=== PATIENT | female | born 1930 | race Caucasian/White ===

== ENCOUNTER 2017-08-27 11:22 | Inpatient (IN) | payer OTHER, MEDICARE ==
--- NOTE | 2017-08-27 11:41 | EDPHY ---
H & P Stated Complaint: sent from dr Lopez--afib--hx of, increased sob and lower ext edema Time Seen by Provider: 08/27/17 11:39 - Personal History Current Tetanus/Diphtheria Vaccine: Unsure Current Tetanus Diphtheria and Acellular Pertussis (TDAP): Unsure Tetanus Vaccine Date: 11/2004 - Medical/Surgical History Hx Asthma: No Hx Chronic Respiratory Disease: No Hx Diabetes: No Hx Cardiac Disease: Yes Hx Renal Disease: No Hx Cirrhosis: No Hx Alcoholism: No Hx HIV/AIDS: No Hx Splenectomy or Spleen Trauma: No Other PMH: HTN, NM 6 yrs ago, 3 stents placed, stroke 1989, hysterectomy 1973, cataract surgery, scarlet fever as a child, broke her back, chronic A-fib, chronic cough; pna - Social History Smoking Status: Never smoked Constitutional: Initial Vital Signs Temperature (C) 36.5 C 08/27/17 11:27 Heart Rate 92 08/27/17 11:27 Respiratory Rate 16 08/27/17 11:27 Blood Pressure 110/80 08/27/17 11:27 O2 Sat (%) 93 08/27/17 11:27 O2 Delivery Mode Nasal Cannula O2 (L/minute) 2 Allergies/Adverse Reactions: ciprofloxacin Allergy (Verified 09/03/15 17:11) Influenza Virus Vaccines Allergy (Verified 08/27/17 13:03) Sulfa (Sulfonamide Antibiotics) Allergy (Verified 09/03/15 17:11) Home Medications: Medication Instructions Recorded Ascorbic Acid [Vitamin C 250 mg 250 mg PO BID 09/03/15 (*)] Aspirin [Aspirin 81mg (*)] 81 mg PO DAILY 09/03/15 Cholecalciferol Vit D3 [Vitamin D3 2,000 units PO DAILY 09/03/15 (*)] Ezetimibe [Zetia 10 MG (*)] 10 mg PO DAILY 09/03/15 Ferrous Sulfate [Ferrous Sulf 325 325 mg PO DAILY18 09/03/15 MG (*)] Metoprolol Tartrate [Lopressor 25 12.5 mg PO BID 09/03/15 mg (*)] Multivitamins [Multivitamin (*)] 1 each PO DAILY 09/03/15 Rosuvastatin Calcium [Crestor 20mg 20 mg PO DAILY 09/03/15 (*)] Spironolactone [Aldactone 25 MG 12.5 mg PO DAILY 09/03/15 (*)] Amiodarone HCl [Pacerone (*)] 200 mg PO DAILY #30 tab 09/05/15 Dabigatran Etexilate Mesylate 75 mg PO BID 11/19/15 [Pradaxa] Furosemide [Lasix 20 MG (*)] 20 mg PO DAILY 11/19/15 Herbals/Supplements -Info Only 1 ea PO DAILY 11/19/15 Albuterol [Proventil Inhaler HFA 1 - 2 puffs IH Q4H PRN #1 mdi 11/22/15 (*)] Amoxicillin/Clavulanate Pot 875 mg PO BID #14 tab 11/22/15 [Augmentin 875Mg] Doxycycline Hyclate [Vibramycin 100 mg PO BID #0 capsule 11/22/15 100 MG (*)] Fluticasone/Salmeter 250/50Mcg 1 puffs IH BID #1 disk 11/22/15 [Advair] predniSONE 40 mg PO DAILY #5 tablet 11/22/15 Medical Decision Making - Diagnostics Imaging Results: Imaging Impressions Chest X-Ray 08/27/17 11:45 Impression: Congestive heart failure, with pleural effusions and atelectasis. Imaging: I viewed and interpreted images myself ED Course/Re-evaluation: CHIEF COMPLAINT: Rapid atrial fibrillation, fatigue HISTORY OF PRESENT ILLNESS: The patient is an anticoagulated 87 y/o female arriving at the referral of her reference assistant for rapid atrial fibrillation and possible CHF. Her medical history incudes atrial fibrillation, CAD, NM post stents, hypertension, hyperlipidemia, and CVA. She's had a 15lb weight gain over the last three weeks and developed bilateral leg swelling about 2 weeks ago. She's had associated fatigue for about 2 weeks as well. She denies any chest pain or pressure, dyspnea, fever, recent illness, or recent trauma. REVIEW OF SYSTEMS: A 10 point review of systems was performed and is negative with the exception of the elements mentioned in the history of present illness. PHYSICAL EXAM: HR, BP, O2 Sat, RR. Temp noted General Appearance: Alert, well hydrated, appropriate, and non-toxic appearing. Head: Atraumatic without scalp tenderness or obvious injury Eyes: Pupils equal, round, reactive to light and accommodation, EOMI, no trauma , no injection. Nose: Atraumatic, no rhinorrhea, clear. Throat: There is no erythema or exudates, no lesions, normal tonsils, mucus membranes moist. Neck: Supple,nontender, no lymphadenopathy. Respiratory: No retractions, no distress, no wheezes, and no accessory muscle use. Lungs are diminished to auscultation bilaterally. Cardiovascular: Regular rate and rhythm, no murmurs, rubs, or gallops. Good capillary refill all extremities. Gastrointestinal: Abdomen is soft, nontender, non-distended, no masses, no rebound, no guarding, no peritoneal signs. Musculoskeletal: 1+ pedal edema bilaterally. Normal active ROM of all extremities, atraumatic. Neurological: Alert, appropriate, and interactive. The patient non-focal cranial nerves, motor, sensory, and cerebellar exam. Skin: No rashes, good turgor, no nodules on palpation. Past medical history: Chronic kidney disease, CAD, NM status post stents, chronic atrial fibrillation, CVA without deficits, hypertension, hyperlipidemia , continuous home O2 Past surgical history: appendectomy, hernia repair Family history: noncontributory Social history: Nonsmoker. No alcohol use. Lives alone with family support. 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 Uriostegui Prior medical records reviewed including admission 11/19/15 for pneumonia and for atrial fibrillation w/RVR. DIAGNOSTICS/PROCEDURES/CRITICAL CARE TIME: The 12 lead EKG was interpreted by myself. Rapid atrial fibrillation rate 150. See hard copy and/or "tracemaster" electronic copy for interpretation. Chest x-ray: cardiomegaly and CHF Echocardiogram: Pericardial thrombus, mild pericardial effusion DIFFERENTIAL DIAGNOSIS: The differential diagnosis for the patient's narrow complex tachycardia included but was not limited to various causes of sinus tachycardia such as dehydration and medicines, SVT, atrial flutter, atrial fibrillation, pulmonary causes. MEDICAL DECISION MAKING: This is an 87 y/o female with cardiac disease history who presents with rapid atrial fibrillation, fatigue, and CHF symptoms for 2-3 weeks. She has gained 15lbs over this time period and has bilateral pedal edema on exam. Her EKG shows rapid atrial fibrillation rate around 150. Plan to treat this and her CHF with 40mg IV Lasix and 10mg IV Diltazem and 10mg/hr IV Diltazem drip. IV established. Labs drawn. Echocardiogram and chest x-ray ordered. Patient will require admission. Chest x-ray shows cardiomegaly and CHF. Her labs show anemia, hypomagnesemia, hyponatremia, and an elevated BNP. 2gm IV magnesium ordered. Consulted with Dr. Boswell, cardiology, and Dr. Uriostegui, patient's reference assistant. Dr. Boswell will follow her admission and read echo. Spoke with hospitalist service. Dr. Roger accepts admission. - Data Points Laboratory Results: Laboratory Results 08/27/17 11:50 08/27/17 11:50 08/27/17 08/27/17 08/27/17 11:50 11:50 11:50 WBC RBC Hgb Hct MCV MCH MCHC RDW Plt Count MPV Neut % (Auto) Lymph % (Auto) [place] % (Auto) Eos % (Auto) Baso % (Auto) Nucleat RBC Rel Count Absolute Neuts (auto) Absolute Lymphs (auto) Absolute Monos (auto) Absolute Eos (auto) Absolute Basos (auto) Absolute Nucleated RBC Immature Gran % Immature Gran # PT 21.6 SEC H SEC (12.0-15.0) INR 1.87 H (0.83-1.16) APTT 58.6 SEC H SEC (23.0-38.0) Sodium 130 mEq/L L mEq/L (134-144) Potassium 3.8 mEq/L mEq/L (3.5-5.2) Chloride 89 mEq/L L mEq/L (97-110) Carbon Dioxide 29 mEq/l mEq/l (22-31) Anion Gap 12 mEq/L mEq/L (8-16) BUN 25 mg/dL H mg/dL (7-23) Creatinine 1.2 mg/dL H mg/dL (0.6-1.0) Estimated GFR 42 Glucose 129 mg/dL H mg/dL (70-100) Calcium 9.0 mg/dL mg/dL (8.5-10.4) Magnesium 1.5 mg/dL L mg/dL (1.6-2.3) Troponin I 0.031 ng/mL ng/mL (0.000-0.034) NT-Pro-B Natriuret Pep 7050 pg/mL H pg/mL (0-450) 08/27/17 11:50 WBC 7.61 10^3/uL 10^3/uL (3.80-9.50) RBC 3.67 10^6/uL L 10^6/uL (4.18-5.33) Hgb 11.2 g/dL L g/dL (12.6-16.3) Hct 33.4 % L % (38.0-47.0) MCV 91.0 fL fL (81.5-99.8) MCH 30.5 pg pg (27.9-34.1) MCHC 33.5 g/dL g/dL (32.4-36.7) RDW 13.8 % % (11.5-15.2) Plt Count 172 10^3/uL 10^3/uL (150-400) MPV 11.4 fL fL (8.7-11.7) Neut % (Auto) 75.5 % H % (39.3-74.2) Lymph % (Auto) 13.3 % L % (15.0-45.0) [place] % (Auto) 9.6 % % (4.5-13.0) Eos % (Auto) 0.7 % % (0.6-7.6) Baso % (Auto) 0.4 % % (0.3-1.7) Nucleat RBC Rel Count 0.0 % % (0.0-0.2) Absolute Neuts (auto) 5.75 10^3/uL 10^3/uL (1.70-6.50) Absolute Lymphs (auto) 1.01 10^3/uL 10^3/uL (1.00-3.00) Absolute Monos (auto) 0.73 10^3/uL 10^3/uL (0.30-0.80) Absolute Eos (auto) 0.05 10^3/uL 10^3/uL (0.03-0.40) Absolute Basos (auto) 0.03 10^3/uL 10^3/uL (0.02-0.10) Absolute Nucleated RBC 0.00 10^3/uL 10^3/uL (0-0.01) Immature Gran % 0.5 % % (0.0-1.1) Immature Gran # 0.04 10^3/uL 10^3/uL (0.00-0.10) PT INR APTT Sodium Potassium Chloride Carbon Dioxide Anion Gap BUN Creatinine Estimated GFR Glucose Calcium Magnesium Troponin I NT-Pro-B Natriuret Pep Medications Given: Discontinued Medications Diltiazem HCl (Cardizem 25 Mg/5 Ml Vial) 10 mg IVP EDNOW ONE Stop: 08/27/17 11:58 Last Admin: 08/27/17 12:07 Dose: 10 mg Furosemide (Lasix Injection) 40 mg IVP EDNOW ONE Stop: 08/27/17 12:28 Last Admin: 08/27/17 12:35 Dose: 40 mg Diltiazem HCl 125 mg/ Dextrose 125 mls @ 0 mls/hr IV EDNOW ONE; As Directed PRN Reason: Protocol Stop: 08/27/17 11:58 Last Admin: 08/27/17 12:21 Dose: 125 mls Magnesium Sulfate (Magnesium Sulf 2 Gm (Premix)) 50 mls @ 50 mls/hr IV ONCE ONE Stop: 08/27/17 13:27 Last Admin: 08/27/17 12:35 Dose: 50 mls Departure - Departure Disposition: [facility] Inpatient Acute Clinical Impression: Rapid atrial fibrillation, Hypomagnesemia, Hyponatremia Fatigue Qualifiers: Fatigue type: other Qualified Code(s): R53.83 - Other fatigue CHF (congestive heart failure) Qualifiers: Congestive heart failure type: unspecified congestive heart failure type Congestive heart failure chronicity: unspecified congestive heart failure chronicity Qualified Code(s): I50.9 - Heart failure, unspecified Condition: Fair Referrals: Edwin Haas MD [Primary Care Provider] - As per Instructions Report Scribed for: Alberto Henriquez Report Scribed by: Elena Pradhan Date of Report: 08/27/17 Time of Report: 12:09
--- NOTE | 2017-08-27 11:43 | CPEKG ---
Heart Rate: 154 RR Interval: 390 QRSD Interval: 82 QT Interval: 312 QTC Interval: 500 QRS Brule: -9 T Wave Brule: 8 EKG Severity - ABNORMAL ECG - EKG Impression: ATRIAL FIBRILLATION WITH RAPID V-RATE EKG Impression: LOW VOLTAGE THROUGHOUT EKG Impression: CONSIDER ANTEROSEPTAL INFARCT Electronically Signed By: Alberto Henriquez 27-Aug-2017 13:00:54
[2017-08-27] MEDS ORDERED: DILTIAZEM 25 MG/5 ML VIAL IVP ONE (11:57)
[2017-08-27] MEDS ORDERED: DILTIAZEM 125 MG in D5W 125 ML IV ONE (11:57)
[2017-08-27 11:58] LABS: % IMMATURE GRANULYOCYTES 0.5 % (0.0-1.1); ABSOLUTE IMMATURE GRANULOCYTES 0.04 10^3/uL (0.00-0.10); ADD DIFF? NO; ADD MORPH? NO; ADD SCAN? NO; ATYPICAL LYMPHOCYTE FLAG 10 (0-99); FRAGMENT RBC FLAG 0 (0-99); HEMATOCRIT 33.4 % (38.0-47.0); HEMOGLOBIN 11.2 g/dL (12.6-16.3); LEFT SHIFT FLG 0 (0-99); LIPEMIA HEMOLYSIS FLAG 80 (0-99); MEAN CELL HEMOGLOBIN 30.5 pg (27.9-34.1); MEAN CELL HEMOGLOBIN CONCENTR. 33.5 g/dL (32.4-36.7); MEAN PLATELET VOLUME 11.4 fL (8.7-11.7); PLATELET CLUMPS FLAG 0 (0-99); PLATELET COUNT 172 10^3/uL (150-400); RED BLOOD CELL COUNT 3.67 10^6/uL (4.18-5.33); RED CELL DISTRIBUTION WIDTH 13.8 % (11.5-15.2)
[2017-08-27 12:07] LABS: INR 1.87 (0.83-1.16); PROTIME(PATIENT) 21.6 SEC (12.0-15.0)
[2017-08-27 12:08] LABS: APTT 58.6 SEC (23.0-38.0)
[2017-08-27 12:15] LABS: ANION GAP 12 mEq/L (8-16); CARBON DIOXIDE 29 mEq/l (22-31); CHLORIDE 89 mEq/L (97-110); CREATININE 1.2 mg/dL (0.6-1.0); GLOMERULAR FILTRATION RATE 42; GLUCOSE 129 mg/dL (70-100); MAGNESIUM 1.5 mg/dL (1.6-2.3); POTASSIUM 3.8 mEq/L (3.5-5.2); SODIUM 130 mEq/L (134-144)
[2017-08-27] MEDS ORDERED: FUROSEMIDE 40 MG/4 ML VIAL IVP ONE (12:27)
[2017-08-27] MEDS ORDERED: MAGNESIUM SULF 2 GM/WATER 50 ML IV ONE (12:28)
--- NOTE | 2017-08-27 13:20 | ECHO ---
[email or web address] [address] [address] Main: [phone] Fax: Transthoracic Echocardiogram Name: NOMI MERLOS MR#: [id number] Study Date: 08/27/2017 Study Time: 12:21 PM Date of : 1930 Age: 87 year(s) Height: 172.7 cm (68 in.) Weight: 71.67 kg (158 lb.) BSA: 1.85 m2 Gender: Female Examination: Echo Indication: Chest Pain Image Quality: Contrast: Requested by: Alberto Henriquez BP: 119 mmHg/91 mmHg Heart Rate: Rhythm: Indication: Chest Pain Procedure Staff Head Athletic Trainer: Radha Valencia Physician: Urbano Boswell Requesting Provider: Conclusions: moderate reduction in LV systolic function with ejection fraction of 40%. Normal right ventricular systolic function. Progressive valvular heart disease with moderate to severe mitral regurgitation and severe tricuspid regurgitation. Aortic cusp and mitral annular calcification. Trivial pericardial effusion. Pleural effusion. Patient appears to be in atrial fibrillation precluding wall motion analysis. Measurements: Chambers Valvular Assessment AV/MV Valvular Assessment TV/PV Normal Normal Normal Name Value Range Name Value Range Name Value Range Ao Swati (MM): 2.7 cm (2.2 cm-3.7 AV Vmax: 0.94 m/s (1 m/s-1.7 TR Vmax: 2.05 mm/s ( - ) cm) m/s) TR PGmax: 17 mmHg ( - ) IVSd (2D): 0.8 cm (0.6 cm-1.1 AV maxP mmHg ( - ) syst. PAP: 27 mmHg ( - ) cm) AV meanP mmHg ( - ) LVDd (2D): 4.4 cm (3.9 cm-5.3 LVOT Vmax: 0.53 m/s (0.7 m/s-1.1 cm) m/s) LVDs (2D): 3.3 cm (2.1 cm-4 TARA (Vmax): 1.1 cm2 ( - ) cm) TARA (VTI): 1.2 cm ( - ) LVPWd (2D): 0.9 cm ( - ) MV maxP mmHg ( - ) LVOTd 1.6 cm 1.6 cm mm MV meanP mmHg ( - ) LVEF (MOD4): 38 % (>=55 %) MVA (Vmax): 1.1 m/s ( - ) Visual EF: 40 % Continued Measurements: Chambers Valvular Assessment AV/MV Valvular Assessment TV/PV Name Value Name Value Name Value LADs: 5.0 cm MV Annulus: 3.5 cm CVP (est.): 10 mmHg LADs Lon.1 cm MV VTI: 16.20 cm LA Area: 26.4 cm2 MR ERO: 0.300 cm2 MR PISA radius: 8 mm Patient: NOMI MERLOS Study Date: 08/27/2017 Page 1 of 2 12:21 PM MR Reg. Volume: 33 ml MR Reg. Fraction: 21 % Findings: Left Ventricle: Normal size left ventricle. The ejection fraction is visually estimated to be 40 %. Right Ventricle: Normal size right ventricle. Left Atrium: The left atrium is moderately to severely dilated. Right Atrium: The right atrium is moderately to severely dilated. Mitral Valve: Moderate-severe mitral annular calcification. Moderate to severe mitral regurgitation. Aortic Valve: The aortic valve is tri-leaflet. Mild aortic cusp calcification is noted. Tricuspid Valve: The pulmonary artery pressure is normal. Severe tricuspid regurgitation is present. Tricuspid leaflets do not coapt completely. Pulmonic Valve: The pulmonic valve is normal in appearance. Trivial pulmonic valve regurgitation. Pericardium: Trivial pericardial effusion. Left side pleural effusion. A small thrombus is visualized in the pericardial space. (No Signature Object) Patient: NOMI MERLOS Study Date: 08/27/2017 Page 2 of 2 12:21 PM [id number]
[2017-08-27] MEDS ORDERED: ONDANSETRON 4 MG/2 ML VIAL IVP PRN (13:32)
[2017-08-27] MEDS ORDERED: ONDANSETRON DISINTEGRATING 4 MG TAB PO PRN (13:32)
[2017-08-27] MEDS ORDERED: ACETAMINOPHEN 325 MG TAB PO PRN (13:32)
[2017-08-27] MEDS ORDERED: AMIODARONE HCL 200 ML IV ONE (14:08)
[2017-08-27] MEDS ORDERED: AMIODARONE HCL 100 ML IV ONE (14:08)
[2017-08-27] MEDS ORDERED: LOPERAMIDE HCL 2 MG CAP PO PRN (14:40)
[2017-08-27] MEDS ORDERED: METOPROLOL TARTRATE 25 MG TAB PO SCH (14:45)
[2017-08-27] MEDS: IPRATROPIUM/ALBUTEROL 3 ML DEYVIAL IH SCH ×2 (15:18→20:46)
[2017-08-27] MEDS: FUROSEMIDE 40 MG/4 ML VIAL IVP SCH (15:35)
--- NOTE | 2017-08-27 15:38 | PDGENHP ---
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 In the E.D. received Amiodorone and Diltiazem. She is seen on the medical floor and she is still in afib with a rate around 130's. Other than some fatigue and generalized malaise, she is not symptomatic. Denies CP, SOB, Fever, N/V, or other. she reports mild dyspnea on exertion over the past 2 weeks. Also reports worsening leg edema. She is on Lasix 40mg daily which she has been taking regularly. She lives in a SNF. In the E. D. she was also given Lasix 40mg IV x 1 and Magnesium was replaced PMHx: -Chronic renal insufficiency, HTN, hx of [place], CAD s/p stents, stroke, scarlet fever, chronic afib, chronic anticoagulation PSHx: cataract surgery, Hysterectomy Soc: never smoked, no ETOH, no illicits FmHx: Non contributory History Information - Allergies/Home Medication List Allergies/Adverse Reactions: ciprofloxacin Allergy (Verified 09/03/15 17:11) Influenza Virus Vaccines Allergy (Verified 08/27/17 13:03) Sulfa (Sulfonamide Antibiotics) Allergy (Verified 09/03/15 17:11) Home Medications: Ascorbic Acid [Vitamin C 250 mg (*)] 250 mg PO BID 09/03/15 [Last Taken 08/27/17 ] Cholecalciferol Vit D3 [Vitamin D3 (*)] 2,000 units PO DAILY 09/03/15 [Last Taken 08/27/17] Ezetimibe [Zetia 10 MG (*)] 10 mg PO DAILY 09/03/15 [Last Taken 08/27/17] Ferrous Sulfate [Ferrous Sulf 325 MG (*)] 325 mg PO BID 09/03/15 [Last Taken ] Metoprolol Tartrate [Lopressor 25 mg (*)] 25 mg PO DAILY 09/03/15 [Last Taken ] Multivitamins [Multivitamin (*)] 1 each PO DAILY 09/03/15 [Last Taken 08/27/17] Rosuvastatin Calcium [Crestor 20mg (*)] 20 mg PO DAILY18 09/03/15 [Last Taken ] Dabigatran Etexilate Mesylate [Pradaxa] 75 mg PO BID 11/19/15 [Last Taken ] Herbals/Supplements -Info Only 1 ea PO DAILY 11/19/15 [Last Taken Unknown] Acetaminophen [Tylenol 325mg (*)] 650 mg PO Q4HRS PRN 08/27/17 [Last Taken Unknown] Aspirin [Aspirin 81mg (*)] 81 mg PO DAILY 08/27/17 [Last Taken 08/27/17] Furosemide [Lasix 40 MG (*)] 40 mg PO DAILY 08/27/17 [Last Taken 08/27/17] Lisinopril [Zestril 5 mg (*)] 5 mg PO DAILY 08/27/17 [Last Taken 08/27/17] Loperamide HCl [Imodium 2 mg (*)] 2 mg PO DAILY PRN 08/27/17 [Last Taken Unknown ] Omeprazole [Prilosec 20 mg] 20 mg PO DAILY 08/27/17 [Last Taken 08/27/17] I have personally reviewed and updated: family history, medical history, social history, surgical history - Social History Smoking Status: Never smoked Review of Systems Review of Systems: ROS: 10pt was reviewed & negative except for what was stated in HPI & below Physical Exam Physical Exam: Temp Pulse Resp BP Pulse Ox 36.2 C 118 H 18 111/79 95 08/27/17 13:46 08/27/17 13:46 08/27/17 13:46 08/27/17 13:46 08/27/17 13:46 O2 (L/minute) 2 Constitutional: no apparent distress, appears nourished, not in pain Eyes: PERRL, EOMI Ears, Nose, Mouth, Throat: moist mucous membranes, hard of hearing, No hearing normal, No dry mucous membranes Cardiovascular: irregularly irregular, edema (1+ LE edema), No JVD Respiratory: no respiratory distress, reduced air movement Gastrointestinal: normoactive bowel sounds, soft, non-tender abdomen Skin: warm Neurologic: AAOx3 Psychiatric: interacting appropriately, not anxious, not encephalopathic, thought process linear Lab Data & Imaging Review 08/27/17 11:50 08/27/17 11:50 WBC 7.61 10^3/uL (3.80-9.50) 08/27/17 11:50 RBC 3.67 10^6/uL (4.18-5.33) L 08/27/17 11:50 Hgb 11.2 g/dL (12.6-16.3) L 08/27/17 11:50 Hct 33.4 % (38.0-47.0) L 08/27/17 11:50 MCV 91.0 fL (81.5-99.8) 08/27/17 11:50 MCH 30.5 pg (27.9-34.1) 08/27/17 11:50 MCHC 33.5 g/dL (32.4-36.7) 08/27/17 11:50 RDW 13.8 % (11.5-15.2) 08/27/17 11:50 Plt Count 172 10^3/uL (150-400) 08/27/17 11:50 MPV 11.4 fL (8.7-11.7) 08/27/17 11:50 Neut % (Auto) 75.5 % (39.3-74.2) H 08/27/17 11:50 Lymph % (Auto) 13.3 % (15.0-45.0) L 08/27/17 11:50 [place] % (Auto) 9.6 % (4.5-13.0) 08/27/17 11:50 Eos % (Auto) 0.7 % (0.6-7.6) 08/27/17 11:50 Baso % (Auto) 0.4 % (0.3-1.7) 08/27/17 11:50 Nucleat RBC Rel Count 0.0 % (0.0-0.2) 08/27/17 11:50 Absolute Neuts (auto) 5.75 10^3/uL (1.70-6.50) 08/27/17 11:50 Absolute Lymphs (auto) 1.01 10^3/uL (1.00-3.00) 08/27/17 11:50 Absolute Monos (auto) 0.73 10^3/uL (0.30-0.80) 08/27/17 11:50 Absolute Eos (auto) 0.05 10^3/uL (0.03-0.40) 08/27/17 11:50 Absolute Basos (auto) 0.03 10^3/uL (0.02-0.10) 08/27/17 11:50 Absolute Nucleated RBC 0.00 10^3/uL (0-0.01) 08/27/17 11:50 Immature Gran % 0.5 % (0.0-1.1) 08/27/17 11:50 Immature Gran # 0.04 10^3/uL (0.00-0.10) 08/27/17 11:50 PT 21.6 SEC (12.0-15.0) H 08/27/17 11:50 INR 1.87 (0.83-1.16) H 08/27/17 11:50 APTT 58.6 SEC (23.0-38.0) H 08/27/17 11:50 Sodium 130 mEq/L (134-144) L 08/27/17 11:50 Potassium 3.8 mEq/L (3.5-5.2) 08/27/17 11:50 Chloride 89 mEq/L (97-110) L 08/27/17 11:50 Carbon Dioxide 29 mEq/l (22-31) 08/27/17 11:50 Anion Gap 12 mEq/L (8-16) 08/27/17 11:50 BUN 25 mg/dL (7-23) H 08/27/17 11:50 Creatinine 1.2 mg/dL (0.6-1.0) H 08/27/17 11:50 Estimated GFR 42 08/27/17 11:50 Glucose 129 mg/dL (70-100) H 08/27/17 11:50 Calcium 9.0 mg/dL (8.5-10.4) 08/27/17 11:50 Magnesium 1.5 mg/dL (1.6-2.3) L 08/27/17 11:50 Troponin I 0.031 ng/mL (0.000-0.034) 08/27/17 11:50 NT-Pro-B Natriuret Pep 7050 pg/mL (0-450) H 08/27/17 11:50 Assessment & Plan Assessment: 87 YO Female with hx of CHF and Afib admitted for CHF-E and Afib with RVR. Studies: EKG: Afib (personally reviewed) TTE: LVEF 40%, small thrombus pericardial space Plan: -admit -Cards following -cont Amiodorone -restart Pradaxa -restart Metoprolol #Afib with RVR: Rate in 130's. Amio per Cards. Also on home Metoprolol. On Pradaxa for chronic AC #small pericardial thrombus #CHF with exacerbation: EF is mostly preserved. Diuretics given in the E.D. Hold off on additional dose today. Continue Lisinopril #Hyponatremia in setting of volume overload. expect improvement with volume improvement #Chronic renal insufficiency, baseline is 1.2-16. Currently at baseline #Hypomagnesemia, replaced in the E.D. will recheck in the a.m. #Weakness and deconditioning: PT/OT consults pending
--- NOTE | 2017-08-27 16:33 | GCON ---
[f rep st] CONSULTATION CARDIOLOGY CONSULTATION DATE OF CONSULTATION: 08/27/2017 REASON FOR CONSULTATION: We were asked by Dr. Henriquez of the emergency department to evaluate this p atient for her acute systolic CHF. HISTORY OF PRESENT ILLNESS: The patient is an 87-year-old female, usually followed by Dr. Mik Uriostegui of Cardiology. She has a history of paroxysmal atrial fibrillation, CAD status post stenting after an acute PR in 2008 for the circumflex lesion, hypertension, dyslipidemia, chronic kidney disease, ch ronic hypoxic respiratory failure, valvular heart disease, and previous CVA. She has had Holter thiago toring with Dr. Uriostegui's office and has had episodes of PAF on monitoring. Dr. Uriostegui informs me that he r most recent Holter showed only sinus rhythm. Over the last 2 weeks, patient has noted worsening fatigue, edema, dyspnea with exertion, cough, and a 15-pound weight gain. She also noted that her heart rates have been very elevated on vitals checks . She saw Dr. Uriostegui today, who recommended hospitalization for acute systolic CHF as well as AFib wit h RVR. She denies any recent illness. She has not been missing any of her medications. She has not had any travels. She does admit to a high-salt diet and reports that she adds salt because she has been told she needs this for her hyponatremia. In regard to her valvular heart disease, she has known severe MR on previous echo. She also has rosalina re TR and pulmonary hypertension. 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 PAST MEDICAL HISTORY: 1. PAF. 2. CAD. 3. CHF. 4. Chronic kidney disease. 5. Chronic hypoxic respiratory failure, typically on 2 L/min. 6. History of pulmonary fibrosis. SOCIAL HISTORY: She lives at [facility]. She is a nonsmoker. She reports she has not had a krista-morgan on the patio in over 3 years. Her granddaughter is present in the room, and she is inv olved in her care. MEDICATIONS: Outpatient medications include: Multivitamin, Imodium, rosuvastatin, Tylenol, omeprazo le, metoprolol, lisinopril, furosemide, vitamin D3, Advair, ferrous sulfate, Zetia, aspirin, vitamin C, and Pradaxa 75 mg p.o. b.i.d. ALLERGIES: Ciprofloxacin, influenza virus vaccine, and sulfonamides. REVIEW OF SYSTEMS: As per HPI. A complete 10-point review of systems was obtained and negative exce pt for what is dictated. FAMILY HISTORY: Parents are . PHYSICAL EXAMINATION: VITAL SIGNS: BP of 111/79, heart rate of 118, respirations 18, O2 saturation 95% on 2 L/min, temp of 97.2 degrees Fahrenheit. GENERAL: She is a very pleasant, elderly female in no apparent distress. HEAD: Normocephalic atraumatic. EYES: Without scleral icterus. HEART: Ir regularly irregular with a 2/6 systolic ejection murmur. She has a heave present. LUNGS: Significa ntly diminished with crackles throughout all lung bases. ABDOMEN: Mildly distended. Nontender with normoactive bowel sounds. : With no Velásquez present. SKIN: 2 to 3+ edema to her knees. PSYCH: Normal mood and affect. NEURO: Grossly oriented x3. LABORATORY DATA: CBC with WBC of 7.61, hemoglobin 11.2, hematocrit 33.4, platelet count 172. Sodium 130, potassium 3.8, chloride 89, CO2 29, BUN 25, creatinine 1.2, glucose 129. NT proBNP of 7050. T roponin 0.031. Chest x-ray images reviewed, shows pleural effusion consistent with CHF. A 12-lead ECG, personally i nterpreted, demonstrates atrial fibrillation with rapid ventricular rate at 154. Echocardiogram resu lts reviewed, shows EF of 40%, normal RV systolic function. There is progressive valvular heart dise ase with [id number] MR and severe TR. Aortic cusp and mitral annular calcifications noted. There is trivial pericardial effusion, and there is pleural effusion present. Telemetry reviewed. I discussed the patient's care with Dr. Henriquez. IMPRESSION AND PLAN: The patient is an 87-year-old female, who presents with acute systolic congesti ve heart failure. 1. Atrial fibrillation with rapid ventricular response. She has had approximately 2 weeks of sympto ms. She has previously been in sinus rhythm per my discussion with Dr. Uriostegui. We will plan to try to control rhythm with amiodarone; at minimum, this should help with rate control. 2. Systolic congestive heart failure, likely tachy mediated. This is evidenced by peripheral edema and elevated NT proBNP at 7050. 3. Hyponatremia. Her sodium is mildly decreased. Upon review of her previous labs, this is pretty much within her typical range. We will plan to sodium and fluid restrict and treat with IV Lasix. 4. Chronic kidney disease. Her creatinine is at baseline. 5. Coronary artery disease. She has no symptoms currently suggestive of angina. Given her advanced age, we will not plan for any risk stratification within this hospital stay. This may be followed w marialuisa Uriostegui. /[id number]/MODL
[2017-08-27] MEDS: ROSUVASTATIN CALCIUM 20 MG TAB PO SCH (17:42)
[2017-08-27] MEDS: FLUTICASONE/SALMETER 250/50MCG DISKUS IH SCH (20:46)
[2017-08-27] MEDS ORDERED: AMIODARONE HCL 540 MG in D5W 300 ML IV ONE (21:00)
[2017-08-27] MEDS: DABIGATRAN ETEXILATE MESYL 75 MG CAP PO SCH (21:01)
[2017-08-27] MEDS: ASCORBIC ACID 250 MG TAB PO SCH (21:01)
[2017-08-27] MEDS: FERROUS SULFATE 325 MG TAB PO SCH (21:01)
[2017-08-28] MEDS ORDERED: IPRATROPIUM/ALBUTEROL 3 ML DEYVIAL IH PRN (04:00)
[2017-08-28 04:28] LABS: % IMMATURE GRANULYOCYTES 0.4 % (0.0-1.1); ABSOLUTE IMMATURE GRANULOCYTES 0.03 10^3/uL (0.00-0.10); ADD DIFF? NO; ADD MORPH? NO; ADD SCAN? NO; ATYPICAL LYMPHOCYTE FLAG 0 (0-99); FRAGMENT RBC FLAG 0 (0-99); HEMATOCRIT 31.4 % (38.0-47.0); HEMOGLOBIN 10.5 g/dL (12.6-16.3); LEFT SHIFT FLG 0 (0-99); LIPEMIA HEMOLYSIS FLAG 80 (0-99); MEAN CELL HEMOGLOBIN 29.8 pg (27.9-34.1); MEAN CELL HEMOGLOBIN CONCENTR. 33.4 g/dL (32.4-36.7); MEAN CELL VOLUME 89.2 fL (81.5-99.8); MEAN PLATELET VOLUME 11.8 fL (8.7-11.7); PLATELET CLUMPS FLAG 0 (0-99); PLATELET COUNT 140 10^3/uL (150-400); RED BLOOD CELL COUNT 3.52 10^6/uL (4.18-5.33)
[2017-08-28 04:46] LABS: ALANINE AMINOTRANSFERASE 54 IU/L (9-52); ALBUMIN 3.2 g/dL (3.5-5.0); ALKALINE PHOSPHATASE 70 IU/L (38-126); ANION GAP 12 mEq/L (8-16); ASPARTATE AMINOTRANSFERASE 51 IU/L (14-46); BILIRUBIN,TOTAL 0.7 mg/dL (0.1-1.4); CALCIUM 8.8 mg/dL (8.5-10.4); CARBON DIOXIDE 30 mEq/l (22-31); CHLORIDE 91 mEq/L (97-110); CREATININE 1.1 mg/dL (0.6-1.0); GLOMERULAR FILTRATION RATE 47; GLUCOSE 110 mg/dL (70-100); MAGNESIUM 1.7 mg/dL (1.6-2.3); POTASSIUM 3.2 mEq/L (3.5-5.2); SODIUM 133 mEq/L (134-144); TOTAL PROTEIN 5.7 g/dL (6.3-8.2)
[2017-08-28] MEDS: ASCORBIC ACID 250 MG TAB PO SCH ×2 (08:15→19:12)
[2017-08-28] MEDS: DABIGATRAN ETEXILATE MESYL 75 MG CAP PO SCH ×2 (08:15→19:09)
[2017-08-28] MEDS: LISINOPRIL 5 MG TAB PO SCH (08:16)
[2017-08-28] MEDS: EZETIMIBE 10 MG TAB PO SCH (08:16)
[2017-08-28] MEDS: CHOLECALCIFEROL VIT D3 1,000 UNITS TAB PO SCH (08:16)
[2017-08-28] MEDS: PANTOPRAZOLE SODIUM 40 MG TAB PO SCH (08:17)
[2017-08-28] MEDS: ASPIRIN 81 MG CHEWABLE TAB PO SCH (08:17)
[2017-08-28] MEDS: FERROUS SULFATE 325 MG TAB PO SCH ×2 (08:17→19:09)
[2017-08-28] MEDS: FUROSEMIDE 40 MG/4 ML VIAL IVP SCH ×2 (08:18→14:20)
[2017-08-28] MEDS: MULTIVITAMINS 1 EACH TAB PO SCH (08:18)
[2017-08-28] MEDS ORDERED: PROTOCOL POTASSIUM 1 DOSE MISC PRN (08:37)
[2017-08-28] MEDS ORDERED: PROTOCOL MAGNESIUM 1 DOSE IV PRN (08:37)
--- NOTE | 2017-08-28 08:45 | PDCARPN ---
Cardiology Progress Note Chief Complaint: No complaints today. Patient had noted weight gain and accelerated heart rates Assessment/Plan: Assessment: Patient is an 87 y/o female with history of CAD s/p PCI (LCX, AMI, 2007), pAF ( on Pradaxa with [id number] score of 7) with history of CVA, CHF (EF 40% by echo ), severe MR and TR, HTN, HLP, and CRI, who presented to [facility] with complaints of weight gain and faster than normal heart rates. Today, the patient is feeling better. No complaints of chest pains or pressure. No PND or othopnea. Weights are down as well as BNP. Heart rates continue to be accelerated, and last night, given the tachycardia noted, trial on Amiodarone IV was implemented without much success with heart rate reduction. No signs or symptoms of infection (WBC was normal, no fever). Uncertain on trigger for the accelerated heart rates that are currently being noted. Valve pathology likely contributing to the presence of atrial fibrillation (both mitral and tricuspid valves with severe regurgitation) Plan: (1) CVA prophylaxis with Pradaxa should continue (2) Amiodarone to continue with low dose beta susy assistance toward rate control assistance (3) Crestor and Zetia should continue with HLP in setting of CAD with PCI (4) Zestril and metoprolol to continue (patient currently not in acute CHF, and HTN management assistance should continue (5) ASA therapy to continue with history of CAD/PCI (6) Would get OT/PT on board with the patient (7) IS (incentive spirometry) for assistance with pulmonary prophylaxis (8) Close following to electrolytes Subjective: Patient is feeling very well this morning. Weights are down, but heart rates continue to be somewhat accelerated (by tele) Reviewed/Discussed With: multidisciplinary team Objective: Vital Signs (8 Hrs) Temp Pulse Pulse Pulse Pulse Resp BP 08/28/17 08:17 145 H 134/97 H 08/28/17 08:16 134/97 H 08/28/17 08:14 134/97 H 08/28/17 07:55 36.8 C 119 H 22 H 148/106 H 08/28/17 04:46 139 H 134 H 123 H 08/28/17 04:45 36.7 C 123 H 16 119/79 BP BP BP Pulse Ox 08/28/17 08:17 08/28/17 08:16 08/28/17 08:14 08/28/17 07:55 96 08/28/17 04:46 128/83 H 135/75 H 119/79 08/28/17 04:45 93 Intake/Output (24 Hrs) 08/27/17 08/28/17 08/29/17 05:59 05:59 05:59 Intake Total 879 Output Total 900 Balance -21 Intake: Oral (ml) 350 IV Intake (ml) 217 IV Infused (ml) 312 Amiodarone HCl 100 ml @ 100 600 mls/hr IV ONCE ONE Rx #:[id number] Amiodarone HCl 200 ml @ 142 33.333 mls/hr IV ONCE ONE Rx#:[id number] Output: Urine (ml) 900 Bedside Commode 400 Toilet 500 Other: Weight 54.5 kg Number of Voids Bedside Commode 2 Toilet 1 Result Diagrams: 08/28/17 03:38 08/28/17 03:38 Telemetry: atrial fibrillation with rapid ventricular response Echocardiogram: mild LVEF (40%) with severe MR and TR - Physical Exam Constitutional: WDWN, healthy appearing, no apparent distress Eyes: PERRL Ears, Nose, Mouth, Throat: moist mucous membranes Cardiovascular: systolic murmur, irregularly irregular (tachycardia), No jugular vein distention Peripheral Pulses: 2+: dorsalis-pedis (R), dorsalis-pedis (L) Respiratory: reduced air movement (in the bases) Gastrointestinal: normoactive bowel sounds, no tenderness Skin: no rashes, no edema Musculoskeletal: no muscular tenderness Neurologic: AAOx3, CN II-XII grossly intact Psychiatric: cooperative, interactive, following commands ICD10 Worksheet Patient Problems: Problems Problem Status Onset Congestive heart failure Acute Fatigue Acute Hypomagnesemia Acute Hyponatremia Acute Rapid atrial fibrillation Acute Acute on chronic renal insufficiency Acute Afib Acute Bilateral pneumonia Acute Chronic Disease Mgmt/Transitional Care Acute Hypotension (arterial) Acute
[2017-08-28] MEDS ORDERED: METOPROLOL TARTRATE 25 MG TAB PO SCH (09:00)
[2017-08-28] MEDS ORDERED: NON-FORMULARY NEW DRUG (Omeprazole [Prilosec 20 Mg] 20 MG) PO SCH (09:00)
[2017-08-28] MEDS ORDERED: Herbals/Supplements -Info Only PO SCH (09:00)
[2017-08-28] MEDS ORDERED: POTASSIUM CL 10 MEQ TAB PO ONE ×2 (09:36→18:58)
[2017-08-28] MEDS ORDERED: MAGNESIUM SULF 1 GM/DEXTROSE 100 ML IV ONE (09:38)
[2017-08-28] MEDS: FLUTICASONE/SALMETER 250/50MCG DISKUS IH SCH ×2 (10:21→20:29)
--- NOTE | 2017-08-28 12:12 | HOSPPROG ---
Hospitalist Progress Note Assessment/Plan: 87 YO Female with hx of CHF and Afib admitted for CHF-E and Afib with RVR. Studies: EKG: Afib (personally reviewed) TTE: LVEF 40%, small thrombus pericardial space Plan: -admit -Cards following -cont Amiodorone -Increase Metoprolol to BID dosing -Cont Pradaxa -IV Lasix, can likely change to once daily tomorrow -D/W Cards -PT/OT #Afib with RVR: Pradaxa for chronic AC #small pericardial thrombus #CHF with exacerbation: EF is mostly preserved. Diuretics given in the E.D. Hold off on additional dose today. Continue Lisinopril #Hyponatremia in setting of volume overload. improving #Chronic renal insufficiency, baseline is 1.2-16. Currently at baseline #Hypomagnesemia, replace PRN #Weakness and deconditioning: PT/OT Subjective: still with tachcardia and Afib. Leg swelling is better. No CP or SOB. Objective: Vital Signs Temp Pulse Resp BP Pulse Ox 36.8 C 111 H 24 H 114/80 96 08/28/17 11:40 08/28/17 11:40 08/28/17 11:40 08/28/17 11:40 08/28/17 11:40 Laboratory Results 08/28/17 03:38 08/28/17 03:38 08/27/17 08/28/17 08/29/17 05:59 05:59 05:59 Intake Total 879 Output Total 900 350 Balance -21 -350 PT 21.6 SEC (12.0-15.0) H 08/27/17 11:50 INR 1.87 (0.83-1.16) H 08/27/17 11:50 - Physical Exam Constitutional: no apparent distress Eyes: PERRL, EOMI Ears, Nose, Mouth, Throat: moist mucous membranes Cardiovascular: irregularly irregular, edema Respiratory: reduced air movement Gastrointestinal: normoactive bowel sounds Skin: warm Neurologic: AAOx3 Psychiatric: interacting appropriately, not anxious, not encephalopathic ICD10 Worksheet Patient Problems: Problems Problem Status Onset Congestive heart failure Acute Fatigue Acute Hypomagnesemia Acute Hyponatremia Acute Rapid atrial fibrillation Acute Acute on chronic renal insufficiency Acute Afib Acute Bilateral pneumonia Acute Chronic Disease Mgmt/Transitional Care Acute Hypotension (arterial) Acute
--- NOTE | 2017-08-28 14:53 | PDMN ---
Medical Necessity Medical necessity: Pt meets INPT criteria per MD as of 08/28/17. Est. LOS >2 MN for ongoing eval/mgmt of Afib with RVR, CHF with exacerbation, hyponatremia, hypomagnesemia, weakness and deconditioning; hx chronic renal insufficiency per MD progress note.
--- NOTE | 2017-08-28 15:56 | CPEKG ---
Heart Rate: 120 RR Interval: 500 QRSD Interval: 150 QT Interval: 338 QTC Interval: 478 QRS [place]: 40 T Wave [place]: -74 EKG Severity - ABNORMAL ECG - EKG Impression: ATRIAL FIBRILLATION EKG Impression: NONSPECIFIC INTRAVENTRICULAR CONDUCTION DELAY EKG Impression: PROBABLE ANTERIOR INFARCT, ACUTE Electronically Signed By: Chato Griggs 29-Aug-2017 08:37:16
[2017-08-28] MEDS: ROSUVASTATIN CALCIUM 20 MG TAB PO SCH (17:20)
[2017-08-28 18:17] LABS: POTASSIUM 3.3 mEq/L (3.5-5.2)
[2017-08-28] MEDS: METOPROLOL TARTRATE 25 MG TAB PO SCH (19:08)
[2017-08-29 03:45] LABS: % IMMATURE GRANULYOCYTES 0.3 % (0.0-1.1); ABSOLUTE IMMATURE GRANULOCYTES 0.02 10^3/uL (0.00-0.10); ADD DIFF? NO; ADD MORPH? NO; ADD SCAN? NO; ATYPICAL LYMPHOCYTE FLAG 0 (0-99); FRAGMENT RBC FLAG 0 (0-99); HEMATOCRIT 33.6 % (38.0-47.0); HEMOGLOBIN 11.1 g/dL (12.6-16.3); LEFT SHIFT FLG 0 (0-99); LIPEMIA HEMOLYSIS FLAG 80 (0-99); MEAN CELL HEMOGLOBIN 29.7 pg (27.9-34.1); MEAN CELL VOLUME 89.8 fL (81.5-99.8); MEAN PLATELET VOLUME 11.3 fL (8.7-11.7); PLATELET CLUMPS FLAG 10 (0-99); PLATELET COUNT 147 10^3/uL (150-400); RED BLOOD CELL COUNT 3.74 10^6/uL (4.18-5.33); RED CELL DISTRIBUTION WIDTH 14.1 % (11.5-15.2)
[2017-08-29 04:47] LABS: ANION GAP 8 mEq/L (8-16); CALCIUM 8.9 mg/dL (8.5-10.4); CARBON DIOXIDE 32 mEq/l (22-31); CHLORIDE 95 mEq/L (97-110); CREATININE 1.2 mg/dL (0.6-1.0); GLOMERULAR FILTRATION RATE 42; GLUCOSE 112 mg/dL (70-100); MAGNESIUM 1.7 mg/dL (1.6-2.3); POTASSIUM 3.5 mEq/L (3.5-5.2); SODIUM 135 mEq/L (134-144)
[2017-08-29] MEDS: PANTOPRAZOLE SODIUM 40 MG TAB PO SCH (08:37)
[2017-08-29] MEDS: MULTIVITAMINS 1 EACH TAB PO SCH (08:37)
[2017-08-29] MEDS: DABIGATRAN ETEXILATE MESYL 75 MG CAP PO SCH ×2 (08:37→20:12)
[2017-08-29] MEDS: FUROSEMIDE 40 MG/4 ML VIAL IVP SCH (08:37)
[2017-08-29] MEDS: FERROUS SULFATE 325 MG TAB PO SCH ×2 (08:38→20:12)
[2017-08-29] MEDS: CHOLECALCIFEROL VIT D3 1,000 UNITS TAB PO SCH (08:38)
[2017-08-29] MEDS: ASCORBIC ACID 250 MG TAB PO SCH ×2 (08:38→20:12)
[2017-08-29] MEDS: ASPIRIN 81 MG CHEWABLE TAB PO SCH (08:38)
[2017-08-29] MEDS: EZETIMIBE 10 MG TAB PO SCH (08:38)
[2017-08-29] MEDS: METOPROLOL TARTRATE 25 MG TAB PO SCH (08:39)
[2017-08-29] MEDS ORDERED: POTASSIUM CL 10 MEQ TAB PO ONE ×2 (09:21→18:57)
[2017-08-29] MEDS ORDERED: MAGNESIUM SULF 1 GM/DEXTROSE 100 ML IV ONE (09:25)
[2017-08-29] MEDS: FLUTICASONE/SALMETER 250/50MCG DISKUS IH SCH ×2 (10:03→21:20)
--- NOTE | 2017-08-29 10:08 | PDCARPN ---
Cardiology Progress Note Chief Complaint: Patient doing well today. Daughter in law (peds) was present in the room with the patient today Assessment/Plan: Assessment: 08-28-17 No cardiovascular complaints. Ongoing accelerated heart rates (120-140 bpm are noted). Amiodarone drip was stopped yesterday. Heart rates continue to be elevated. There are viable concerns about age and history of asthma. No cardiovascular complaints today - no chest pains or pressure, no PND or orthopnea. Weights continue to trend down (2.5 kg down), and patient feeling better as a result of that trend. Discussion with patient's family and hospitalist today about the unlikely success of PATSY with possible cardioversion for conversion of atrial fibrillation to normal sinus rhythm given the cardiac anatomy (severe mitral and tricuspid regurgitation). Ongoing use of IS at bedside yesterday (and recommendations to continue today). 08-27-17 Patient is an 87 y/o female with history of CAD s/p PCI (LCX, AMI, 2007), pAF ( on Pradaxa with [id number] score of 7) with history of CVA, CHF (EF 40% by echo ), severe MR and TR, HTN, HLP, and CRI, who presented to [facility] with complaints of weight gain and faster than normal heart rates. Today, the patient is feeling better. No complaints of chest pains or pressure. No PND or othopnea. Weights are down as well as BNP. Heart rates continue to be accelerated, and last night, given the tachycardia noted, trial on Amiodarone IV was implemented without much success with heart rate reduction. No signs or symptoms of infection (WBC was normal, no fever). Uncertain on trigger for the accelerated heart rates that are currently being noted. Valve pathology likely contributing to the presence of atrial fibrillation (both mitral and tricuspid valves with severe regurgitation) Plan: (1) Continue Pradaxa for CVA prophylaxis (risk is very elevated) (2) Would discontinue beta blockers in favor of three times per day CCB therapy (Cardizem 30 mg) (3) Continue Crestor and Zetia for HLP (4) ASA for CAD/PCI history (5) Ambulation as tolerated (OT/PT assessment/recommendations) (6) Would keep patient overnight with the changes to medical therapy implemented (7) Unless instability is noted, would refrain from PATSY/cardioversion given the risks of these procedures and the unlikely success with conversion to normal sinus rhythm Subjective: Patient doing well this morning Reviewed/Discussed With: family, hospitalist, multidisciplinary team Objective: Vital Signs (8 Hrs) Temp Pulse Pulse Pulse Pulse Resp BP 08/29/17 07:33 36.8 C 146 H 17 143/92 H 08/29/17 03:55 138 H 144 H 126 H 08/29/17 03:52 36.9 C 112 H 16 143/88 H BP BP BP Pulse Ox 08/29/17 07:33 92 08/29/17 03:55 128/68 H 105/70 143/88 H 08/29/17 03:52 93 Intake/Output (24 Hrs) 08/28/17 08/29/17 08/30/17 05:59 05:59 05:59 Intake Total 1300 Output Total 800 Balance 500 Intake: Oral (ml) 1300 Output: Urine (ml) 800 Bedside Commode 300 Toilet 500 Other: Weight 51.846 kg Intake Quantity Yes Sufficient Number of Voids Toilet 3 Result Diagrams: 08/29/17 03:32 08/29/17 03:32 Telemetry: atrial fibrillation with rapid ventricular response - Physical Exam Constitutional: WDWN, healthy appearing, no apparent distress Eyes: PERRL, EOMI Ears, Nose, Mouth, Throat: moist mucous membranes Cardiovascular: systolic murmur, irregularly irregular (tachycardia) Peripheral Pulses: 2+: dorsalis-pedis (R), dorsalis-pedis (L) Respiratory: no crackles, reduced air movement (in the bases) Gastrointestinal: normoactive bowel sounds Skin: no edema Musculoskeletal: no muscular tenderness Neurologic: AAOx3, CN II-XII grossly intact Psychiatric: cooperative, interactive, following commands ICD10 Worksheet Patient Problems: Problems Problem Status Onset Congestive heart failure Acute Fatigue Acute Hypomagnesemia Acute Hyponatremia Acute Rapid atrial fibrillation Acute Acute on chronic renal insufficiency Acute Afib Acute Bilateral pneumonia Acute Chronic Disease Mgmt/Transitional Care Acute Hypotension (arterial) Acute
[2017-08-29] MEDS: LISINOPRIL 5 MG TAB PO SCH (11:24)
--- NOTE | 2017-08-29 13:29 | HOSPPROG ---
Hospitalist Progress Note Assessment/Plan: 87 YO Female with hx of CHF and Afib admitted for CHF-E and Afib with RVR. Still with AFib with intermittent RVR. [place] not to be a candidate for cardioversion. Studies: EKG: Afib (personally reviewed) TTE: LVEF 40%, small thrombus pericardial space Plan: -Stop Metoprolol -Start Cardizem 30mg TID -stop Lisinopril (did not get today) -close monitoring of BP -Volume status is much improved. Stop IVF (last dose this morning). Start oral Lasix in a.m. -Cont Pradaxa -Discussed plan per above with Cardiology. -PT/OT -D/C hopefully tomorrow #Afib with RVR: Pradaxa for chronic AC #small pericardial thrombus #CHF with exacerbation: EF is mostly preserved. #Hyponatremia in setting of volume overload. resolved #Chronic renal insufficiency, baseline is 1.2-16. Currently at baseline #Hypomagnesemia, replace PRN #Weakness and deconditioning: PT/OT Subjective: Feels better but still in Afib with intermittent RVR. Leg swelling is better. Objective: Vital Signs Temp Pulse Resp BP Pulse Ox 36.6 C 120 H 16 122/81 H 93 08/29/17 12:00 08/29/17 12:00 08/29/17 12:00 08/29/17 12:00 08/29/17 12:00 Laboratory Results 08/29/17 03:32 08/29/17 03:32 08/28/17 08/29/17 08/30/17 05:59 05:59 05:59 Intake Total 1300 1200 Output Total 800 1250 Balance 500 -50 PT 21.6 SEC (12.0-15.0) H 08/27/17 11:50 INR 1.87 (0.83-1.16) H 08/27/17 11:50 - Time Spent With Patient Time Spent with Patient: greater than 35 minutes Time Spent with Patient: Greater than 35 minutes spent on this patients care, greater than 50% of time spent counseling, educating, and coordinating care regarding the above mentioned plan. - Physical Exam Constitutional: no apparent distress Eyes: PERRL Ears, Nose, Mouth, Throat: moist mucous membranes, hearing normal Cardiovascular: irregularly irregular, edema (trace - 1 +) Respiratory: clear to auscultation Gastrointestinal: normoactive bowel sounds, soft, non-tender abdomen Skin: warm Neurologic: AAOx3 Psychiatric: interacting appropriately, not anxious, not encephalopathic ICD10 Worksheet Patient Problems: Problems Problem Status Onset Congestive heart failure Acute Fatigue Acute Hypomagnesemia Acute Hyponatremia Acute Rapid atrial fibrillation Acute Acute on chronic renal insufficiency Acute Afib Acute Bilateral pneumonia Acute Chronic Disease Mgmt/Transitional Care Acute Hypotension (arterial) Acute
[2017-08-29] MEDS: DILTIAZEM 30 MG TAB PO SCH ×3 (15:11→20:12)
--- NOTE | 2017-08-29 15:51 | ASMTCMCOM ---
CM Note CM Note Notes: 87 year ols female admitted for Afib, CHF, Hyponatremia, Chronic renal insuff, weakness. Patient lives at [facility]. She reports that her granddaughter will transport her on discharge back to [place]. Patient uses a walker. No other therapy needs at this time. Date Signed: 08/29/2017 03:50 PM Electronically Signed By:Carmen Nicolas LCSW
[2017-08-29] MEDS: ROSUVASTATIN CALCIUM 20 MG TAB PO SCH (18:01)
[2017-08-29 18:24] LABS: POTASSIUM 3.4 mEq/L (3.5-5.2)
[2017-08-30 04:31] LABS: ANION GAP 7 mEq/L (8-16); CALCIUM 8.8 mg/dL (8.5-10.4); CARBON DIOXIDE 32 mEq/l (22-31); CHLORIDE 93 mEq/L (97-110); GLOMERULAR FILTRATION RATE 52; GLUCOSE 105 mg/dL (70-100); MAGNESIUM 1.7 mg/dL (1.6-2.3); POTASSIUM 3.2 mEq/L (3.5-5.2); SODIUM 132 mEq/L (134-144)
[2017-08-30] MEDS ORDERED: POTASSIUM CL 10 MEQ TAB PO ONE (07:23)
[2017-08-30] MEDS ORDERED: MAGNESIUM SULF 1 GM/DEXTROSE 100 ML IV ONE (08:08)
[2017-08-30] MEDS: FLUTICASONE/SALMETER 250/50MCG DISKUS IH SCH ×2 (08:43→20:11)
[2017-08-30] MEDS: ASPIRIN 81 MG CHEWABLE TAB PO SCH (09:20)
[2017-08-30] MEDS: FERROUS SULFATE 325 MG TAB PO SCH ×2 (09:20→20:29)
[2017-08-30] MEDS: ASCORBIC ACID 250 MG TAB PO SCH ×2 (09:20→20:30)
[2017-08-30] MEDS: CHOLECALCIFEROL VIT D3 1,000 UNITS TAB PO SCH (09:20)
[2017-08-30] MEDS: FUROSEMIDE 40 MG TAB PO SCH (09:20)
[2017-08-30] MEDS: DILTIAZEM 30 MG TAB PO SCH (09:20)
[2017-08-30] MEDS: DABIGATRAN ETEXILATE MESYL 75 MG CAP PO SCH ×2 (09:20→20:30)
[2017-08-30] MEDS: PANTOPRAZOLE SODIUM 40 MG TAB PO SCH (09:21)
[2017-08-30] MEDS: EZETIMIBE 10 MG TAB PO SCH (09:21)
[2017-08-30] MEDS: MULTIVITAMINS 1 EACH TAB PO SCH (09:21)
--- NOTE | 2017-08-30 11:08 | PDCARPN ---
Cardiology Progress Note Assessment/Plan: Assessment/plan: 87 yo F with PAF, CAD s/p WI with LCx PCI in 2008 admitted from cardiology clinic with rapid AFL and acute on chronic heart failure. She feels better with IV diuresis. Did receive IV amiodarone over the weekend. Still with rapid AFL 1. AFL: she has been taking Pradaxa but gives a hx of PATSY 2 years ago with possible DOM thrombus. I think she would benefit from pentecostalism of NSR. Discussed R/B/A of PATSY guided DCCV and she is willing to proceed. This will be scheduled for tomorrow since she ate breakfast today. Will switch to oral BB given her systolic CHF. WIll discuss with Dr. Uriostegui reinitiation of amiodarone. 2. Acute on chronic systolic CHF with LVEF of 40%. Improved, Continue lasix. Change to coreg. 3. CAD; hx WI and Lcx PCI remotely. Neg trop, no CP, nonischemic ECG 4. VHD: worse with AFL and CHF. Will need re-eval in NSR. Not sure if she has had surgical eval 5. Hypokalemia: query related to diuretics. Repletion. 6. HTN; well controlled 7. Elevated transaminases: due to CHF? 40 minutes spent in chart review, personal review of echo/ECG, direct patient contact, and discussion with Dr. Uriostegui, Dr. Markham, family 08/30/17 11:25 Subjective: She feels better with less dyspnea and improved YUN Reviewed/Discussed With: family, hospitalist Time Spent With Patient: 20 minutes Objective: Vital Signs (8 Hrs) Temp Pulse Resp BP Pulse Ox 08/30/17 09:20 134 H 140/97 H 08/30/17 08:00 36.8 C 108 H 18 140/97 H 92 08/30/17 04:00 97 16 118/84 H 94 Intake/Output (24 Hrs) 08/29/17 08/30/17 08/31/17 05:59 05:59 05:59 Intake Total 1300 1900 Output Total 800 2250 Balance 500 -350 Intake: Oral (ml) 1300 1900 Output: Urine (ml) 800 2250 Bedside Commode 300 Toilet 500 2250 Other: Weight 51.846 kg Intake Quantity Yes Yes Sufficient Number of Voids Toilet 3 5 Number of Stools Bedside Commode 1 CXR upon admission reviewed: CHF, bilateral pleural effusions NAD JVP 12 Irreg irreg tachy. Soft holosystolic murmur LLSB and apex No edema Result Diagrams: 08/29/17 03:32 08/30/17 03:52 EKG: reviewed: AFL with RVR. No ischemic changes Telemetry: AFL with RVR Echocardiogram: Reviewed: LVEF 40%. Mod severe MR; severe TR; small pericardial effusion. Pleural effusion ICD10 Worksheet Patient Problems: Problems Problem Status Onset Afib Acute Rapid atrial fibrillation Acute Acute on chronic renal insufficiency Acute Hypotension (arterial) Acute Congestive heart failure Acute Hyponatremia Acute Bilateral pneumonia Acute Chronic Disease Mgmt/Transitional Care Acute Fatigue Acute Hypomagnesemia Acute
[2017-08-30] MEDS: CARVEDILOL 6.25 MG TAB PO SCH ×2 (12:29→17:46)
--- NOTE | 2017-08-30 14:30 | HOSPPROG ---
Hospitalist Progress Note Assessment/Plan: #Atrial flutter: rate uncontrolled. TSH normal. D/w Dr. Guzman. Change to BB, plan for cardioversion tomorrow. Cont Pradaxa #Acute on chronic systolic HF: EF 40%. Cont Lasix, add BB #VHD: will benefit from cardioversion #CAD: remote PCI. BB, statin, ASA #Hypokalemia: replete #Hepatic congestion: from HF. Repeat in AM. No abd pain #HTN: controlled on current meds #Diet: cardiac, NPO after midnight #DVT ppx: Pradaxa #Disp: cont inpt admission for uncontrolled HR, requires telemetry and cardioversion Subjective: no CP or palps. No dizziness or lightheadedness Objective: Vital Signs Temp Pulse Resp BP Pulse Ox 36.4 C 141 H 16 108/68 94 08/30/17 11:39 08/30/17 12:29 08/30/17 11:39 08/30/17 12:29 08/30/17 11:39 Laboratory Results 08/29/17 03:32 08/30/17 03:52 08/29/17 08/30/17 08/31/17 05:59 05:59 05:59 Intake Total 1300 1900 400 Output Total 800 2250 400 Balance 500 -350 0 PT 21.6 SEC (12.0-15.0) H 08/27/17 11:50 INR 1.87 (0.83-1.16) H 08/27/17 11:50 ICD10 Worksheet Patient Problems: Problems Problem Status Onset Congestive heart failure Acute Fatigue Acute Hypomagnesemia Acute Hyponatremia Acute Rapid atrial fibrillation Acute Acute on chronic renal insufficiency Acute Afib Acute Bilateral pneumonia Acute Chronic Disease Mgmt/Transitional Care Acute Hypotension (arterial) Acute
[2017-08-30] MEDS: ROSUVASTATIN CALCIUM 20 MG TAB PO SCH (17:46)
[2017-08-30 18:19] LABS: POTASSIUM 4.2 mEq/L (3.5-5.2)
[2017-08-31] MEDS ORDERED: ATROPINE SULFATE 1 MG/10 ML SYR IVP ONE (06:00)
[2017-08-31] MEDS ORDERED: NS 1,000 ML IV ONE (06:00)
[2017-08-31 07:03] LABS: ALANINE AMINOTRANSFERASE 56 IU/L (9-52); ALBUMIN 3.3 g/dL (3.5-5.0); ALKALINE PHOSPHATASE 67 IU/L (38-126); ANION GAP 9 mEq/L (8-16); ASPARTATE AMINOTRANSFERASE 43 IU/L (14-46); BILIRUBIN,TOTAL 0.9 mg/dL (0.1-1.4); CALCIUM 8.7 mg/dL (8.5-10.4); CARBON DIOXIDE 32 mEq/l (22-31); CHLORIDE 93 mEq/L (97-110); CREATININE 0.9 mg/dL (0.6-1.0); GLOMERULAR FILTRATION RATE 59; GLUCOSE 106 mg/dL (70-100); MAGNESIUM 1.7 mg/dL (1.6-2.3); POTASSIUM 3.9 mEq/L (3.5-5.2); SODIUM 134 mEq/L (134-144)
[2017-08-31 07:04] LABS: INR 1.6 (0.83-1.16); PROTIME(PATIENT) 19.1 SEC (12.0-15.0)
[2017-08-31 07:05] LABS: APTT 58.6 SEC (23.0-38.0)
[2017-08-31] MEDS ORDERED: POTASSIUM CL 10 MEQ TAB PO ONE (07:27)
[2017-08-31] MEDS ORDERED: MAGNESIUM SULF 1 GM/DEXTROSE 100 ML IV ONE (07:31)
--- NOTE | 2017-08-31 08:57 | CPEKG ---
Heart Rate: 133 RR Interval: 451 QRSD Interval: 78 QT Interval: 332 QTC Interval: 494 QRS [place]: -5 T Wave [place]: 28 EKG Severity - ABNORMAL ECG - EKG Impression: A-FLUTTER W/ PREDOM 2:1 AV BLOCK, A-RATE 294 EKG Impression: LOW VOLTAGE IN FRONTAL LEADS EKG Impression: CONSIDER ANTEROSEPTAL INFARCT EKG Impression: BORDERLINE T WAVE ABNORMALITIES EKG Impression: BORDERLINE PROLONGED QT INTERVAL Electronically Signed By: Chato Griggs 02-Sep-2017 13:51:03
[2017-08-31] MEDS: FLUTICASONE/SALMETER 250/50MCG DISKUS IH SCH ×2 (09:04→19:46)
[2017-08-31] MEDS: CARVEDILOL 6.25 MG TAB PO SCH ×2 (09:17→18:09)
[2017-08-31] MEDS: ASPIRIN 81 MG CHEWABLE TAB PO SCH (09:18)
[2017-08-31] MEDS: DABIGATRAN ETEXILATE MESYL 75 MG CAP PO SCH ×2 (09:18→20:23)
--- NOTE | 2017-08-31 11:00 | PDANEPAE ---
ANE Past Medical History - Cardiovascular History Hx Hypertension: Yes Hx Arrhythmias: Yes Hx Coronary Artery / Peripheral Vascular Disease: Yes Hx CHF / Valvular Disease: Yes - Pulmonary History Hx Oxygen in Use at Home: Yes O2 in Use at Home (L/minute): 2 Hx Sleep Apnea: No - Endocrine History Hx Diabetes: No - Chronic Pain History Chronic Pain: No ANE Review of Systems Review of Systems: ANE Patient History - Allergies Allergies/Adverse Reactions: ciprofloxacin Allergy (Verified 09/03/15 17:11) Influenza Virus Vaccines Allergy (Verified 08/27/17 13:03) Sulfa (Sulfonamide Antibiotics) Allergy (Verified 09/03/15 17:11) - Home Medications Home Medications: Ascorbic Acid [Vitamin C 250 mg (*)] 250 mg PO BID 09/03/15 [Last Taken 08/27/17 ] Cholecalciferol Vit D3 [Vitamin D3 (*)] 2,000 units PO DAILY 09/03/15 [Last Taken 08/27/17] Ezetimibe [Zetia 10 MG (*)] 10 mg PO DAILY 09/03/15 [Last Taken 08/27/17] Ferrous Sulfate [Ferrous Sulf 325 MG (*)] 325 mg PO BID 09/03/15 [Last Taken ] Metoprolol Tartrate [Lopressor 25 mg (*)] 25 mg PO DAILY 09/03/15 [Last Taken ] Multivitamins [Multivitamin (*)] 1 each PO DAILY 09/03/15 [Last Taken 08/27/17] Rosuvastatin Calcium [Crestor 20mg (*)] 20 mg PO DAILY18 09/03/15 [Last Taken ] Dabigatran Etexilate Mesylate [Pradaxa] 75 mg PO BID 11/19/15 [Last Taken ] Herbals/Supplements -Info Only 1 ea PO DAILY 11/19/15 [Last Taken Unknown] Acetaminophen [Tylenol 325mg (*)] 650 mg PO Q4HRS PRN 08/27/17 [Last Taken Unknown] Aspirin [Aspirin 81mg (*)] 81 mg PO DAILY 08/27/17 [Last Taken 08/27/17] Furosemide [Lasix 40 MG (*)] 40 mg PO DAILY 08/27/17 [Last Taken 08/27/17] Lisinopril [Zestril 5 mg (*)] 5 mg PO DAILY 08/27/17 [Last Taken 08/27/17] Loperamide HCl [Imodium 2 mg (*)] 2 mg PO DAILY PRN 08/27/17 [Last Taken Unknown ] Omeprazole [Prilosec 20 mg] 20 mg PO DAILY 08/27/17 [Last Taken 08/27/17] - Smoking Hx Smoking Status: Never smoked ANE Labs/Vital Signs - Labs Result Diagrams: 08/29/17 03:32 08/31/17 06:10 - Vital Signs Blood Pressure: 133/113 Heart Rate: 150 Respiratory Rate: 19 O2 Sat (%): 96 Height: 165.1 cm Weight: 51.7 kg ANE Physical Exam - Airway Neck exam: decreased ROM Mallampati Score: Class 2 - ASA Status ASA Status: III ANE Anesthesia Plan Anesthesia Plan: MAC Total IV Anesthesia: Yes
[2017-08-31] MEDS ORDERED: PROPOFOL 200 MG/20 ML VIAL ONE (11:01)
--- NOTE | 2017-08-31 11:13 | PDHPUP ---
History & Physical Update H&P update statement: This history and physical update is based on an assessment of the patient which was completed after admission or registration (within 24 hours), but prior to the surgery/procedure. H&P update: H&P reviewed & patient examined, no change in patient's condition since H&P completed
--- NOTE | 2017-08-31 11:24 | HOSPPROG ---
Hospitalist Progress Note Assessment/Plan: #Atrial flutter: Cardioverted today. Amiodarone, Coreg, Pradaxa #Decompensated systolic HF: EF 40%. Pleural effusions. Start IV Lasix. Cont Coreg #VHD: IV diuresis #CAD: remote PCI. BB, statin, ASA #Hypokalemia: replete #Hepatic congestion: from HF. Repeat in AM. No abd pain #HTN: controlled on current meds #Diet: cardiac, NPO after midnight #DVT ppx: Pradaxa #Disp: cont inpt admission for uncontrolled HR, requires IV diuresis Subjective: s/p cardioversion today Objective: Vital Signs Temp Pulse Resp BP Pulse Ox 36.6 C 150 H 19 133/113 H 96 08/31/17 08:00 08/31/17 10:59 08/31/17 10:59 08/31/17 10:59 08/31/17 10:59 Laboratory Results 08/29/17 03:32 08/31/17 06:10 08/30/17 08/31/17 09/01/17 05:59 05:59 05:59 Intake Total 1900 2150 Output Total 2250 1200 Balance -350 950 PT 19.1 SEC (12.0-15.0) H 08/31/17 06:10 INR 1.60 (0.83-1.16) H 08/31/17 06:10 - Physical Exam Constitutional: no apparent distress, other (sititng on edge of bed, eating lunch) Eyes: PERRL Ears, Nose, Mouth, Throat: moist mucous membranes, hearing normal Cardiovascular: regular rate and rhythym Respiratory: other (decreased BS at bases) Gastrointestinal: normoactive bowel sounds, soft, non-tender abdomen Genitourinary: no bladder fullness Skin: warm Musculoskeletal: full muscle strength Neurologic: AAOx3 Psychiatric: interacting appropriately ICD10 Worksheet Patient Problems: Problems Problem Status Onset Congestive heart failure Acute Fatigue Acute Hypomagnesemia Acute Hyponatremia Acute Rapid atrial fibrillation Acute Acute on chronic renal insufficiency Acute Afib Acute Bilateral pneumonia Acute Chronic Disease Mgmt/Transitional Care Acute Hypotension (arterial) Acute
[2017-08-31] MEDS ORDERED: NALOXONE HCL 0.4 MG/ML INJ IVP PRN (11:49)
[2017-08-31] MEDS ORDERED: fentaNYL 100 MCG/2 ML INJ IVP PRN (11:49)
--- NOTE | 2017-08-31 11:50 | POSTANESTH ---
Post Anesthetic Evaluation Cardiovascular Status: Similar to Pre-Op Cond, Tx Hyper/Hypo-tension Respiratory Status: Normal, Stable Level of Consciousness/Mental Status: Can Participate in Eval Pain Control: Adequate, Prn Tx Ordered Nausea/Vomiting Control: Adequate, Prn Tx Ordered Complications Possibly Related to Anesthesia: None Noted
--- NOTE | 2017-08-31 11:59 | PDTEE1 ---
PATSY Cardioversion Procedure Procedure: electrical cardioversion, transesophageal echo Indications: cardiomyopathy, other (atrial flutter) Procedural Details: Pads were placed in anterior-posterior position. PATSY probe was advanced and standard images obtained. There is no evidence of left atrial or left atrial appendage thrombus. Synchronized cardioversion attempt #1: 200J Results: normal sinus rhythm Conclusions: successful PATSY cardioversion Patient Problems: Problems Problem Status Onset Afib Acute Rapid atrial fibrillation Acute Acute on chronic renal insufficiency Acute Hypotension (arterial) Acute Congestive heart failure Acute Hyponatremia Acute Bilateral pneumonia Acute Chronic Disease Mgmt/Transitional Care Acute Fatigue Acute Hypomagnesemia Acute
--- NOTE | 2017-08-31 12:07 | ASMTCMCOM ---
MONTY Note CM Note Notes: Kandy from [facility] in to visit w/ pt. CM sent over updates to [facility] assisted living per Kandy's request. CM available for d/c needs. Date Signed: 08/31/2017 12:06 PM Electronically Signed By:FAYE Johnston
--- NOTE | 2017-08-31 12:09 | CPEKG ---
Heart Rate: 70 RR Interval: 857 P-R Interval: 168 QRSD Interval: 86 QT Interval: 444 QTC Interval: 480 P Rainier: 63 QRS Rainier: -3 T Wave Rainier: 37 EKG Severity - ABNORMAL ECG - EKG Impression: SINUS RHYTHM EKG Impression: ATRIAL PREMATURE COMPLEX EKG Impression: SINUS PAUSE/ARREST WITH ATRIAL ESCAPE EKG Impression: LOW VOLTAGE IN FRONTAL LEADS EKG Impression: BORDERLINE R WAVE PROGRESSION, ANTERIOR LEADS EKG Impression: BORDERLINE T ABNORMALITIES, ANT-LAT LEADS EKG Impression: SINUS RHYTHM HAS REPLACED ATRIAL FIB/FLUTTER NOTED ON PRIOR ECG Electronically Signed By: Chato Griggs 02-Sep-2017 13:51:29
[2017-08-31] MEDS: EZETIMIBE 10 MG TAB PO SCH (13:42)
[2017-08-31] MEDS: MULTIVITAMINS 1 EACH TAB PO SCH (13:42)
[2017-08-31] MEDS: PANTOPRAZOLE SODIUM 40 MG TAB PO SCH (13:42)
[2017-08-31] MEDS: AMIODARONE HCL 200 MG TAB PO SCH (13:42)
[2017-08-31] MEDS: CHOLECALCIFEROL VIT D3 1,000 UNITS TAB PO SCH (13:42)
[2017-08-31] MEDS: FERROUS SULFATE 325 MG TAB PO SCH ×2 (13:42→20:23)
[2017-08-31] MEDS: ASCORBIC ACID 250 MG TAB PO SCH ×2 (13:42→20:23)
[2017-08-31] MEDS: FUROSEMIDE 40 MG TAB PO SCH (13:59)
[2017-08-31] MEDS: FUROSEMIDE 20 MG/2 ML VIAL IVP SCH (15:57)
--- NOTE | 2017-08-31 16:30 | ECHO ---
[email or web address] [address] [address] Main: [phone] Fax: Transesophageal Echocardiography Name: NOMI MERLOS MR#: [id number] Study Date: 08/31/2017 Study Time: 11:18 AM Date of : 1930 Age: 87 year(s) Height: ( ) Weight: ( ) BSA: Gender: Female Examination: PATSY Indication: pre-cardioversion; r/o DOM thrombus Image Quality: Contrast: I.V. dose of agitated saline Requested by: Susie Guzman Heart Rate: Rhythm: BP: / Procedure Staff Extruder Operator Horizontal: Mckenzie Valencia Physician: Susie Guzman Requesting Provider: PATSY Exam Details Patient Consent: Risks, alternatives of procedure explained to patient, informed consent obtained. Patient Fasting: yes Contrast: I.V. dose of agitated saline Conclusions: Normal size left ventricle. Moderately reduced systolic LV function. The ejection fraction is visually estimated to be 30 %. Moderately dilated right ventricle. Moderately reduced RV function. The left atrium is severely dilated. An agitated saline study was performed and was negative for intracardiac shunting. No thrombus in left appendage. The right atrium is severely dilated. Moderate mitral valve regurgitation is present. Severe tricuspid regurgitation is present. Moderate plaque noted in the transverse aorta.. Small pericardial effusion. Measurements: Chambers Valvular Assessment AV/MV Valvular Assessment TV/PV Normal Normal Normal Name Value Range Name Value Range Name Value Range Visual EF: 30 % Additional Measurements: Patient: NOMI MERLOS Study Date: 08/31/2017 Page 1 of 2 11:18 AM Findings: Left Ventricle: Normal size left ventricle. Moderately reduced systolic LV function. The ejection fraction is visually estimated to be 30 %. Right Ventricle: Moderately dilated right ventricle. Moderately reduced RV function. Left Atrium: The left atrium is severely dilated. An agitated saline study was performed and was negative for intracardiac shunting. No thrombus is noted in the left atrium. Left Atrial Appendage: No thrombus in left appendage. Spontaneous contrast is present in the left atrial appendage. Right Atrium: The right atrium is severely dilated. Mitral Valve: There is mild thickening of the mitral valve leaflets. Moderate mitral valve regurgitation is present. Aortic Valve: The aortic valve is tri-leaflet. There is no aortic valve regurgitation. Tricuspid Valve: The tricuspid valve appears normal. Severe tricuspid regurgitation is present. Pulmonic Valve: The pulmonic valve is normal in appearance and function. Trivial pulmonic valve regurgitation. Aorta: Moderate plaque noted in the transverse aorta.. Pericardium: Small pericardial effusion. l1n (No Signature Object) Patient: NOMI MERLOS Study Date: 08/31/2017 Page 2 of 2 11:18 AM [id number]
[2017-08-31] MEDS: ROSUVASTATIN CALCIUM 20 MG TAB PO SCH (18:10)
[2017-08-31 19:27] LABS: POTASSIUM 3.6 mEq/L (3.5-5.2)
[2017-08-31] MEDS ORDERED: POTASSIUM CL 20 MEQ TAB PO ONE (20:34)
[2017-08-31] MEDS ORDERED: POTASSIUM CL 20 MEQ TAB ONE (23:25)
[2017-09-01 04:46] LABS: HEMATOCRIT 33.1 % (38.0-47.0); HEMOGLOBIN 10.7 g/dL (12.6-16.3); MEAN CELL HEMOGLOBIN 29.8 pg (27.9-34.1); MEAN CELL HEMOGLOBIN CONCENTR. 32.3 g/dL (32.4-36.7); MEAN CELL VOLUME 92.2 fL (81.5-99.8); RED BLOOD CELL COUNT 3.59 10^6/uL (4.18-5.33); RED CELL DISTRIBUTION WIDTH 14.1 % (11.5-15.2)
[2017-09-01 04:55] LABS: ANION GAP 9 mEq/L (8-16); CALCIUM 8.7 mg/dL (8.5-10.4); CARBON DIOXIDE 29 mEq/l (22-31); CHLORIDE 95 mEq/L (97-110); CREATININE 1.1 mg/dL (0.6-1.0); GLOMERULAR FILTRATION RATE 47; GLUCOSE 105 mg/dL (70-100); SODIUM 133 mEq/L (134-144)
[2017-09-01 08:14] VITALS: O2SAT 94
[2017-09-01] MEDS: CARVEDILOL 6.25 MG TAB PO SCH (08:21)
[2017-09-01] MEDS: CHOLECALCIFEROL VIT D3 1,000 UNITS TAB PO SCH (08:21)
[2017-09-01] MEDS: AMIODARONE HCL 200 MG TAB PO SCH (08:21)
[2017-09-01] MEDS: FERROUS SULFATE 325 MG TAB PO SCH (08:21)
[2017-09-01] MEDS: EZETIMIBE 10 MG TAB PO SCH (08:21)
[2017-09-01] MEDS: ASCORBIC ACID 250 MG TAB PO SCH (08:21)
[2017-09-01] MEDS: ASPIRIN 81 MG CHEWABLE TAB PO SCH (08:21)
[2017-09-01] MEDS: PANTOPRAZOLE SODIUM 40 MG TAB PO SCH (08:21)
[2017-09-01] MEDS: MULTIVITAMINS 1 EACH TAB PO SCH (08:21)
[2017-09-01] MEDS: FLUTICASONE/SALMETER 250/50MCG DISKUS IH SCH (08:22)
[2017-09-01] MEDS: DABIGATRAN ETEXILATE MESYL 75 MG CAP PO SCH (08:22)
[2017-09-01] MEDS: FUROSEMIDE 20 MG/2 ML VIAL IVP SCH (08:22)
--- NOTE | 2017-09-01 08:23 | HOSPPROG ---
Hospitalist Progress Note Assessment/Plan: #Atrial flutter: Cardioverted today. Amiodarone, Coreg, Pradaxa #Decompensated systolic HF: EF 40%. Pleural effusions. Start IV Lasix. Cont Coreg #VHD: IV diuresis #CAD: remote PCI. BB, statin, ASA #Hypokalemia: replete #Hepatic congestion: from HF. Repeat in AM. No abd pain #HTN: controlled on current meds #Diet: cardiac, NPO after midnight #DVT ppx: Pradaxa #Disp:DC today Subjective: no cp or sob Objective: Vital Signs Temp Pulse Resp BP Pulse Ox 36.2 C 71 16 157/82 H 94 09/01/17 08:00 09/01/17 08:00 09/01/17 08:00 09/01/17 08:00 09/01/17 08:00 Laboratory Results 09/01/17 03:47 09/01/17 03:47 08/31/17 09/01/17 09/02/17 05:59 05:59 05:59 Intake Total 2150 1160 Output Total 1200 Balance 950 1160 PT 19.1 SEC (12.0-15.0) H 08/31/17 06:10 INR 1.60 (0.83-1.16) H 08/31/17 06:10 - Physical Exam Constitutional: no apparent distress Eyes: PERRL Ears, Nose, Mouth, Throat: moist mucous membranes, hearing normal Cardiovascular: regular rate and rhythym, no murmur, rub, or gallop, systolic murmur, JVD (to mandible), edema (trace ankle edema) Respiratory: no respiratory distress Gastrointestinal: normoactive bowel sounds Genitourinary: no bladder fullness Skin: warm Musculoskeletal: full muscle strength Neurologic: AAOx3, CN II-XII Intact Psychiatric: interacting appropriately ICD10 Worksheet Patient Problems: Problems Problem Status Onset Congestive heart failure Acute Fatigue Acute Hypomagnesemia Acute Hyponatremia Acute Rapid atrial fibrillation Acute Acute on chronic renal insufficiency Acute Afib Acute Bilateral pneumonia Acute Chronic Disease Mgmt/Transitional Care Acute Hypotension (arterial) Acute
--- NOTE | 2017-09-01 10:42 | PDIAF ---
- Diagnosis Diagnosis: atrila flutter Code Status: Do Not Resuscitate - Medication Management Discharge Medications: Medications to Continue on Transfer Ascorbic Acid [Vitamin C 250 mg (*)] 250 mg PO BID 09/03/15 [Last Taken 08/27/17 ] Cholecalciferol Vit D3 [Vitamin D3 (*)] 2,000 units PO DAILY 09/03/15 [Last Taken 08/27/17] Ezetimibe [Zetia 10 MG (*)] 10 mg PO DAILY 09/03/15 [Last Taken 08/27/17] Ferrous Sulfate [Ferrous Sulf 325 MG (*)] 325 mg PO BID 09/03/15 [Last Taken ] Multivitamins [Multivitamin (*)] 1 each PO DAILY 09/03/15 [Last Taken 08/27/17] Rosuvastatin Calcium [Crestor 20mg (*)] 20 mg PO DAILY18 09/03/15 [Last Taken ] Dabigatran Etexilate Mesylate [Pradaxa] 75 mg PO BID 11/19/15 [Last Taken ] Herbals/Supplements -Info Only 1 ea PO DAILY 11/19/15 [Last Taken Unknown] Fluticasone/Salmeter 250/50Mcg [Advair 250/50 (*)] 1 puffs IH BID #1 disk [Last Taken 08/27/17] Acetaminophen [Tylenol 325mg (*)] 650 mg PO Q4HRS PRN 08/27/17 [Last Taken Unknown] Aspirin [Aspirin 81mg (*)] 81 mg PO DAILY 08/27/17 [Last Taken 08/27/17] Furosemide [Lasix 40 MG (*)] 40 mg PO DAILY 08/27/17 [Last Taken 08/27/17] Loperamide HCl [Imodium 2 mg (*)] 2 mg PO DAILY PRN 08/27/17 [Last Taken Unknown ] Omeprazole [Prilosec 20 mg] 20 mg PO DAILY 08/27/17 [Last Taken 08/27/17] Amiodarone HCl [Pacerone (*)] 200 mg PO DAILY #30 tab 09/01/17 [Last Taken Unknown] Carvedilol [Coreg (*)] 6.25 mg PO BIDMEAL #30 tab 09/01/17 [Last Taken Unknown] Discharge Medications: Refer to the Discharge Home Medication list for PRN reason. - Orders Services needed: Registered Nurse, Physical Therapy Diet Recommendation: cardiac -low fat low salt Diet Texture: Regular Texture Diet Additional: Restart Lisinopril 5mg if Cr stable - Labs/Radiology BMP Date: 09/02/17 - Follow Up Care Current Providers and Referrals: Edwin Haas MD [Primary Care Provider] - As per Instructions Matti Uriostegui MD [Medical Doctor] - follow up in 2 weeks
--- NOTE | 2017-09-01 10:45 | PDCARPN ---
Cardiology Progress Note Assessment/Plan: Assessment/plan: 87 yo F with PAF, CAD s/p LA with LCx PCI in 2008 admitted from cardiology clinic with rapid AFL and acute on chronic systolic heart failure. She Has had significant diuresis in the hospital. 1. AFL: she has been taking Pradaxa but gives a hx of PATSY 2 years ago with possible DOM thrombus. Status post PATSY guided DCCV on August 31. Oral amiodarone has been re-initiated. She is on low-dose Coreg as well for her cardiomyopathy. 2. Acute on chronic systolic CHF with LVEF of 40%. Improved. Transition to her home dose of oral Lasix. Continue carvedilol. Decision to reinitiate lisinopril can be made as an outpatient. This has been on hold here due to borderline low blood pressure. 3. CAD; hx LA and Lcx PCI remotely. Neg trop, no CP, nonischemic ECG 4. VHD: worse with AFL and CHF. Will need re-eval in NSR. Her family tells me she has previously declined CT surgery evaluation. 5. Hypokalemia: Resolved with repletion. 6. HTN. well controlled. Consider re-initiation of lisinopril as an outpatient. 7. Elevated transaminases: due to CHF? Patient stable for discharge. Follow-up with Dr. Uriostegui in 2 weeks. 09/01/17 10:45 Subjective: She feels better. She denies dyspnea or chest pain. She remarks about noticeably less lower extremity edema Reviewed/Discussed With: family, hospitalist (Dr. Markham) Objective: Vital Signs (8 Hrs) Temp Pulse Resp BP Pulse Ox 09/01/17 08:00 36.2 C 71 16 157/82 H 94 09/01/17 03:48 36.5 C 63 13 131/55 H 96 Intake/Output (24 Hrs) 08/31/17 09/01/17 09/02/17 05:59 05:59 05:59 Intake Total 2150 1160 Output Total 1200 Balance 950 1160 Intake: Oral (ml) 2150 440 IV Intake (ml) 720 Output: Urine (ml) 1200 Toilet 1200 Other: Weight 52.8 kg Intake Quantity Yes Sufficient Number of Voids Bedside Commode 2 Toilet 2 1 Number of Stools Toilet 1 No acute distress. Up in chair JVP 14 cm of water. Regular rate and rhythm with 2/6 holosystolic murmur at the left lower sternal border and the apex Lungs clear to auscultation bilaterally without wheezes rhonchi or rales Trace bilateral ankle edema Result Diagrams: 09/01/17 03:47 09/01/17 03:47 Telemetry: Sinus rhythm ICD10 Worksheet Patient Problems: Problems Problem Status Onset Afib Acute Rapid atrial fibrillation Acute Acute on chronic renal insufficiency Acute Hypotension (arterial) Acute Congestive heart failure Acute Hyponatremia Acute Bilateral pneumonia Acute Chronic Disease Mgmt/Transitional Care Acute Fatigue Acute Hypomagnesemia Acute
[2017-09-01 11:06] VITALS: BP 106/53; PULSE 82; RESP 18; TEMP 97.7
--- NOTE | 2017-09-01 11:17 | ASMTCMCOM ---
CM Note CM Note Notes: 09/01/2017 Case Management Note: Pt lives at [facility]. [facility] RN provides meds and nebulizer treatments, able to assist with breathing exercises. Pt has used PT on site at [facility] twice and regularly attends the gym to walk 1200 steps a day. In addition, Pt has hand therapy twice a week. Meals are provided in the dining room. Pt plans for grand daughter Coleen IRIZARRY) to transport to [facility] this afternoon. Date Signed: 09/01/2017 11:16 AM Electronically Signed By:Randi Maciel RN
--- NOTE | 2017-09-01 12:35 | GDS ---
[f rep st] DISCHARGE SUMMARY DISCHARGE DIAGNOSES: 1. Atrial flutter status post cardioversion. 2. Decompensated systolic heart failure. 3. Valvular heart disease. 4. Coronary artery disease. 5. Hypokalemia. 6. Hepatic congestion. 7. Hypertension. HPI: An 87-year-old female, history of hypertension, coronary artery disease, permanent atrial fibrillation, who was sent from her medical affairs director's office with AFib and RVR. In the ER, she received a dose of amiodarone and diltiazem. She reported fatigue and generalized malaise. No chest pain, shortness of breath. She did note increased dyspnea with exertion over the past 2 weeks and lower extremity edema. She is on Lasix 40 mg daily. She lives at the [facility]. HOSPITAL COURSE BY PROBLEM: 1. Atrial flutter: Status post successful PATSY cardioversion. She is currently in normal sinus rhythm. Will start amiodarone 200 mg twice daily and start Coreg 6.25 mg. Stop the metoprolol. Continue Pradaxa. 2. Valvular heart disease: Severe tricuspid regurgitation and mitral regurgitation. She did benefit from gentle IV diuresis here. Will resume her on her home Lasix of 40 mg daily. 3. Decompensated systolic heart failure, ejection fraction of 30%. Continue Lasix, Coreg. Lisinopril was held here with soft blood pressures. Repeat blood pressure and creatinine tomorrow, if stable, can resume. She is to follow up with Dr. Uriostegui. 4. History of coronary artery disease: Resume statin, aspirin, beta-susy and Zetia. 5. Hypokalemia: Repleted. 6. Hypertension: Again, held lisinopril with soft blood pressures. This should improve. Can resume if creatinine remains stable. DISPOSITION: Patient is stable for discharge back to [facility]. NEW MEDICATIONS: 1. Amiodarone 200 mg daily. 2. Coreg 6.25 mg twice daily. 3. Stop metoprolol. 4. Held lisinopril 5 mg, resume if blood pressure and creatinine stable. FOLLOWUP: 1. Dr. Uriostegui with Cardiology in 2 weeks. 2. Primary care physician. /[id number]/MODL MTDD
--- NOTE | 2017-09-01 17:03 | ASDISCHSUM ---
Discharge Information Plan Status:Assisted Living Medically Cleared to Leave:09/01/2017 Discharge Date:09/01/2017 01:39 PM D/C Disposition:Assisted Living ADT D/C Disposition:Home, Routine, Self-Care Projected Discharge Date:09/02/2017 11:00 AM Transportation at D/C:Family Discharge Delay Reason: Follow-Up Date:09/02/2017 11:00 AM Discharge Slot: Final Diagnosis:Afib, CHF, Hyponatremia, Chronic renal failure, weakness Placement Information Referral Type:Assisted Living Residence Referral ID:[id number] Provider Name:[facility] Address 1:[address] Address 2: City:[place] Selection Factors: State:[place] Patient Contact Information Contact Name:MANDI Relationship:Son Address:[address] ([address]) [phone] City:[place] Alternate Phone: State/Zip Code:[place] Email: Financial Information Financial Class: Primary Plan Desc:MEDICARE INPATIENT Primary Plan Number:[id number] Secondary Plan Desc:[employer]/MDR SUPPLEMENT Secondary Plan Number:[id number] Assessment Information [facility] CM Progress Note CM Note CM Note Notes: 87 year ols female admitted for Afib, CHF, Hyponatremia, Chronic renal insuff, weakness. Patient lives at [facility]. She reports that her granddaughter will transport her on discharge back to [place]. Patient uses a walker. No other therapy needs at this time. Date Signed: 08/29/2017 03:50 PM Electronically Signed By:Carmen Nicolas LCSW [facility] CM Progress Note CM Note CM Note Notes: Kandy from [place] in to visit w/ pt. CM sent over updates to [facility] assisted living per Kandy's request. CM available for d/c needs. Date Signed: 08/31/2017 12:06 PM Electronically Signed By:FAYE Johnston [facility] CM Progress Note CM Note CM Note Notes: 09/01/2017 Case Management Note: Pt lives at [facility] RN provides meds and nebulizer treatments, able to assist with breathing exercises. Pt has used PT on site at [facility] twice and regularly attends the gym to walk 1200 steps a day. In addition, Pt has hand therapy twice a week. Meals are provided in the dining room. Pt plans for grand daughter Rob IRIZARRY) to transport to [place] this afternoon. Date Signed: 09/01/2017 11:16 AM Electronically Signed By:Randi Maciel RN Intervention Information Intervention Type:*IM-Signed Date of Service:09/01/2017 11:50 AM Patient Type:Inpatient Staff Member:Liliana Rubio Hours: Discipline: Severity: Comment:
== END 2017-09-01 13:39 | disposition home or self-care (01) | DRG 308 ==
LOC: INTOOBSV 12:39 → F2W 13:55 → OBSVTOIN 08-28 14:25
PROVIDERS: ADMIT Family Medicine; ATTEND Family Medicine
DX: I48.2 Chronic atrial fibrillation (principal); I50.23 Acute on chronic systolic (congestive) heart failure; J96.11 Chronic respiratory failure with hypoxia; E87.1 Hypo-osmolality and hyponatremia; E87.6 Hypokalemia; E83.42 Hypomagnesemia; R74.0 Nonspecific elevation of levels of transaminase and lactic acid dehydrogenase [LDH]; I25.10 Atherosclerotic heart disease of native coronary artery without angina pectoris; I12.9 Hypertensive chronic kidney disease with stage 1 through stage 4 chronic kidney disease, or unspecified chronic kidney disease; N18.9 Chronic kidney disease, unspecified; I24.0 Acute coronary thrombosis not resulting in myocardial infarction; I08.1 Rheumatic disorders of both mitral and tricuspid valves; I25.2 Old myocardial infarction; Z95.5 Presence of coronary angioplasty implant and graft; Z86.73 Personal history of transient ischemic attack (TIA), and cerebral infarction without residual deficits; Z87.01 Personal history of pneumonia (recurrent); Z79.01 Long term (current) use of anticoagulants
CPT/HCPCS: 96365; 97161-GP; 97165-GO; 97535-GO; G0378; G8978-GP-CI; G8979-GP-CI; G8980-GP-CI; G8987-GO-CI; G8988-GO-CI; G8989-GO-CI; J0282; J1940; J2704; J3475

== ENCOUNTER → 2018-11-11 | Outpatient (CLI) | payer OTHER, MEDICARE | LOC: FIMAGING 08:26 | PROVIDERS: ATTEND Internal Medicine Cardiovascular Disease | DX: I50.33 Acute on chronic diastolic (congestive) heart failure (principal); J84.10 Pulmonary fibrosis, unspecified; N28.9 Disorder of kidney and ureter, unspecified; R09.02 Hypoxemia ==